=== PATIENT | female | born 2000 | race Two or more races ===

== ENCOUNTER 2025-03-14 05:15 | Emergency (ER) | payer MEDICAID, SELFPAY ==
[2025-03-14 05:17] VITALS: BMI 28.8
[2025-03-14 06:00] VITALS: BP 111/66; PULSE 81; RESP 16; TEMP 36.6; O2SAT 100
--- NOTE | 2025-03-14 06:18 | EKG_ITS ---
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
--- NOTE | 2025-03-14 06:18 | XR_ITS ---
Examination: PA lateral chest 2 views Technique: Upright PA lateral chest 2 views Date and time: March 14, 2025, 0617 hrs. Indications: Syncopal episode this morning. Findings: Normal heart size Lungs are clear. The osseous structures are intact Impression: Negative for aspiration pneumonia
--- NOTE | 2025-03-14 06:24 | PD.EDSYNC ---
ED Syncope RME/HPI General Chief Complaint: Syncope / Near Syncope Stated Complaint: PASSED OUT Time Seen by Provider: 03/14/25 06:18 Source: patient and family Arrival date/time: 03/14/25 05:15 24-year-old female with no known medical history presents to the emergency room with a chief complaint of a syncopal episode that occurred 30 minutes ago. Mode of arrival: ambulatory Limitations: no limitations Related Data Allergies Allergy/AdvReac Type Severity Reaction Status Date / Time No Known Allergies Allergy Verified 03/14/25 05:20 Review of Systems Review of Systems Systems Reviewed: All systems reviewed, normal except as documented Constitutional Constitutional: Reports system reviewed and no additional complaints, except as documented, Denies fatigue, Denies fever(s), Denies headache(s) and Denies weakness Eyes Eyes: Reports system reviewed and no additional complaints, except as documented, Denies blurry vision and Denies change in vision ENT Ears, Nose, Mouth, and Throat: Reports system reviewed and no additional complaints, except as documented, Denies otalgia, Denies headache(s), Denies nasal congestion, Denies throat swelling and Denies vertigo Cardiovascular Cardiovascular: Reports system reviewed and no additional complaints, except as documented, Denies chest pain, Denies chest pain at rest, Denies chest pain with activity, Denies dyspnea, Denies dyspnea on exertion, Denies irregular heart rhythm, Denies lightheadedness, Denies palpitations and Denies paroxysmal nocturnal dyspnea Respiratory Respiratory: Reports system reviewed and no additional complaints, except as documented, Denies chest congestion, Denies cough, Denies dyspnea, Denies dyspnea on exertion and Denies wheezing Gastrointestinal Gastrointestinal: Reports system reviewed and no additional complaints, except as documented, Denies abdominal pain, Denies cramping, Denies nausea and Denies vomiting Genitourinary Genitourinary: Reports system reviewed and no additional complaints, except as documented Musculoskeletal Musculoskeletal: Reports system reviewed and no additional complaints, except as documented and Denies back pain Integumentary/Breasts Skin/Breast: Reports system reviewed and no additional complaints, except as documented and Denies wounds Neurologic Neurologic: Reports system reviewed and no additional complaints, except as documented, Denies confusion, Denies headache(s), Denies lack of coordination, Denies vertigo and Denies weakness Psychiatric Psychiatric: Reports system reviewed and no additional complaints, except as documented, Denies anxiety, Denies confusion, Denies depression, Denies paranoia, Denies suicidal ideation and Denies tactile hallucinations Endocrine Endocrine: Reports system reviewed and no additional complaints, except as documented, Denies fatigue and Denies palpitations Hematologic/Lymphatic Hematologic/Lymphatic: Reports system reviewed and no additional complaints, except as documented and Denies lymphadenopathy Allergic/Immunologic Allergic/Immunologic: Reports system reviewed and no additional complaints, except as documented, Denies throat swelling, Denies urticaria and Denies wheezing ED Exam General Limitations: Present no limitations General appearance: Present alert and in no apparent distress Head Head exam: Present atraumatic Eye Eye exam: Present normal appearance, PERRL and EOMI ENT ENT exam: Present normal exam, normal oropharynx and mucous membranes moist Neck Neck exam: Present normal inspection, full ROM and trachea midline Chest Chest inspection: Present normal inspection and symmetric chest wall rise Respiratory Respiratory exam: Present normal lung sounds bilaterally; Absent respiratory distress, wheezes, stridor, accessory muscle use or prolonged expiratory phase Cardiovascular Cardiovascular exam: Present regular rate, normal rhythm, normal heart sounds, +S1 and +S2; Absent bradycardia, tachycardia, irregular rhythm, systolic murmur, diastolic murmur, rubs, gallop, clicks or JVD Abdominal Exam Abdominal exam: Present soft and normal bowel sounds; Absent tenderness Extremities Exam Extremities exam: Present normal inspection and full ROM Back Exam Back exam: Present normal inspection and full ROM Neurological Exam Neurological exam: Present alert, oriented X3 and CN II-XII intact Psychiatric Psychiatric exam: Present normal affect and normal mood Skin Skin exam: Present warm, dry, intact and normal color Course Quality Measures none Orders Category Date Time Status EKG (ED ONLY) *Do not use* NOW Care 03/14/25 06:[address] head/brain wo con Stat Exams 03/14/25 07:37 Completed EKG (ED Only) Stat Exams 03/14/25 06:18 Draft XR chest 2V Stat Exams 03/14/25 06:18 Completed B-Type Natriuretic Peptide Stat Lab 03/14/25 06:40 Completed CBC Stat Lab 03/14/25 06:40 Completed Comprehensive Metabolic Panel Stat Lab 03/14/25 06:40 Completed Drug Screen,Urine Stat Lab 03/14/25 06:38 Completed HCG,Qualitative Serum Stat Lab 03/14/25 06:40 Completed LDH (Lactate Dehydrogenase) Stat Lab 03/14/25 06:40 Completed Magnesium Stat Lab 03/14/25 06:40 Completed Partial Thromboplastin Time Stat Lab 03/14/25 06:40 Completed Prothrombin Time with INR Stat Lab 03/14/25 06:40 Completed Troponin I Stat Lab 03/14/25 06:40 Completed Urinalysis, C/S if Indicated Stat Lab 03/14/25 06:38 Completed Urine Culture Stat Lab 03/14/25 06:38 Received Vital Signs Vital signs: Vital Signs Temperature 97.8 F 03/14/25 06:00 Pulse Rate 81 03/14/25 06:00 Respiratory Rate 16 03/14/25 06:00 Blood Pressure 111/66 03/14/25 06:00 Pulse Oximetry (%) 100 03/14/25 06:00 Oxygen Delivery Method Room Air 03/14/25 06:00 PROCEDURES: EKG Interpretation #1: Date of EK03/14/25 Rate: 86 Interpretation: Reviewed by me EKG Impression: Normal sinus rhythm Syncope MDM Narrative MDM Narrative:: 24-year-old female with no known medical history presents to the emergency room with a chief complaint of a syncopal episode that occurred 30 minutes ago. Patient is hemodynamically stable and in no apparent distress Physical examination shows a normal neurological exam. Pupils are PERRLA EOMs are intact the patient has a normal steady gait. Patient denies any palpitations any chest pain any stomach pain or any headaches or dizziness. EKG shows normal sinus rhythm at [address] deviation. CBC CMP were negative for any acute findings. CT of the head and brain was negative for any acute findings. Patient was discharged and educated to follow-up with primary care provider in the next 24 to 48 hours and return to the emergency room for any evidence of worsening signs or symptoms Patient data External records reviewed:: [facility] previous records Clinical information provided by:: patient Social determinants that could affect healthcare access:: none Patient has the following chronic illnesses:: No chronic illness How is presenting disease/condition affected by chronic disease/condition?: no chronic disease Evaluation data The following diagnostics were reviewed and interpreted by me:: lab results and radiology exam(s) Lab and/or radiology exams considered but not ordered:: Labs radiology exams considered and ordered Interpretation Summary: Chest [id number]: Normal heart size Lungs are clear. The osseous structures are intact Impression: Negative for aspiration pneumonia CT head and brain-Findings: No significant ventricular enlargement. Intra-axial or extra-axial hemorrhage density is not seen. No mass effect or midline shift Basal cisterns are not remarkable. Fourth ventricle is midline. Cranial vault intact. Impression: Negative for acute hemorrhage, mass effect or midline shift Medications / Prescriptions Medications or Prescriptions considered but not ordered:: No medication given Medication administrations:: No medication given Consultations Consultation(s) initiated? (list below): No Diagnosis Syncope Differential Diagnosis: syncope due to orthostatic hypotension, vasovagal syncope and subarachnoid hemorrhage Most likely diagnosis given after review of the tests above:: Vasovagal syncope Admission Indicated Admission indicated?: not indicated Admission Request Was there a request for admission?: No Disposition Plan Disposition Plan: Discharge Discharge Attestation Discharge Attestation: The patient and all family members were given an opportunity to ask questions and understood the discharge instructions. Discharge instructions specifically effects, indications for sooner follow up or return to the emergency department, and the expected course of current diagnosis. Patient condition: Stable Discharge Plan Plan Patient Disposition: HOME (Self Care) Discharge Disposition comment: Stable Prescriptions/Referrals Referrals: No Primary/Family,Physician [Primary Care Provider] - In 1 week Problem List Clinical Impression: Vasovagal syncope Patient/Caregiver Discharge Instructions Education Materials: ED Fainting, Uncertain Cause, ED Dizziness or Syncope ... Additional Instructions: Please follow-up with your primary care provider in the next 24 to 48 hours Your cardiac examination today was within normal limits. Your CT of your head and brain was negative for any acute findings. For any evidence of worsening signs or symptoms return to the emergency room immediately Print Language: Romanian Stand Alone Forms: Jennie Award Info., Work/School Release, Patient Portal Info Letter KEN/MERLY Supervising Physician KEN/MERLY Supervising Physician: Dr. Chin
[2025-03-14 06:46] LABS: Basophils # (Auto) 0.1 Thou/mm3 (0.0-0.2); Basophils % (Auto) 1 % (0-2.5); Eosinophils # (Auto) 0.2 Thou/mm3 (0.0-0.5); Eosinophils % (Auto) 1 % (0-10); Hematocrit 43.6 % (36.0-46.0); Hemoglobin 14.1 g/dL (12.0-16.0); Immature Granulocytes Auto 0.05 Thou/mm3 (0.00-0.00); Lymphocytes # (Auto) 2.5 Thou/mm3 (1.0-4.8); Lymphocytes % (Auto) 22 % (10-50); Mean Corpuscular HGB Conc 32.3 g/dl (31.0-37.0); Mean Corpuscular Hemoglobin 29.4 pg (25.0-35.0); Mean Corpuscular Volume 91 fL (80-100); Monocytes # (Auto) 0.9 Thou/mm3 (0.0-0.8); Monocytes % (Auto) 8 % (0-12); Neutrophils # (Auto) 7.4 Thou/mm3 (1.8-7.7); Neutrophils % (Auto) 67 % (37-80); Nucleated Red Blood Cell # 0.00 Thou/mm3 (0.00-0.00); Nucleated Red Blood Cell % 0 /100 WBC (0); Platelet Count 188 Thou/mm3 (140-440); RDW Standard Deviation 43.4 fL (36.4-46.3); Red Blood Count 4.80 Miln/mm3 (4.00-5.20); White Blood Count 11.1 Thou/mm3 (3.6-11.0)
[2025-03-14 06:49] LABS: Collection Type, Urine Clean Catch
[2025-03-14 07:04] LABS: INR 1.0 (0.9-1.3); Partial Thromboplastin Time 24.7 Seconds (22.0-36.0); Prothrombin Time 11.1 Seconds (9.0-12.2)
[2025-03-14 07:06] LABS: B-Type Natriuretic Peptide < 20 pg/mL (0-100)
[2025-03-14 07:08] LABS: Alanine Aminotransferase 17 U/L (10-49); Albumin, Serum 4.6 gm/dL (3.5-5.0); Albumin/Globulin Ratio 2.4 (1.2-2.2); Alkaline Phosphatase 73 U/L (46-116); Anion Gap 8 (7-16); Aspartate Amino Transferase 20 U/L (0-34); BUN/Creatinine Ratio 10 Ratio (12-20); Bilirubin,Total 0.3 mg/dL (0.3-1.2); Blood Urea Nitrogen 7 mg/dL (9-23); Calcium 9.8 mg/dL (8.3-10.6); Calcium (Corrected) 9.8 mg/dL (8.5-10.1); Carbon Dioxide 26.6 mMol/L (20.0-31.0); Chloride 106 mMol/L (98-107); Creatinine (Component) 0.7 mg/dL (0.6-1.3); Estimated Creatinine Clearance 134.3 mL/min (>60); Globulin 1.9 gm/dL (2.3-3.5); Glucose 57 mg/dL (74-106); LDH (Lactate Dehydrogenase) 170 U/L (120-246); Magnesium 2.2 mg/dL (1.6-2.6); Osmolality,Calculated 277 (275-295); Potassium 3.5 mMol/L (3.4-5.1); Sodium 141 mMol/L (136-145); Total Protein 6.5 gm/dL (5.7-8.2); Troponin I < 0.002 ng/mL (0.0-0.045); eGFR > 60 See Note
[2025-03-14 07:09] LABS: Bilirubin,Urine Negative (Negative); Blood,Urine Negative (Negative); Clarity,Urine Turbid (Clear/Hazy); Color,Urine Lt-Yellow (Lt Yel-Yel); Glucose, Urine Negative (Negative); Ketones,Urine Negative (Negative); Leukocyte Esterase,Urine Positive (Negative); Nitrite,Urine Negative (Negative); PH,Urine 6.5 (5.0-7.0); Protein,Urine Negative (Neg - Trace); RBC,Urine 1 /hpf (0-3); Specific Gravity,Urine 1.015 (1.001-1.035); Squamous Epithelial Cell,Urine 6 /hpf (0-5); Urobilinogen,Urine Negative mg/dL (0.0-1.0); WBC,Urine 14 /hpf (0-5)
[2025-03-14 07:16] LABS: Culture Indicated,Urine Yes
[2025-03-14 07:21] LABS: Amphetamine/Methamp Scrn,U Negative (Negative); Barbiturate Screen,Urine Negative (Negative); Benzodiazepines Screen,Urine Negative (Negative); Benzoylecgonine Screen, Ur Negative (Negative); Fentanyl Screen,Urine Negative (Negative); Opiate Screen,Urine Negative (Negative); THC Screen,Urine Positive (Negative)
[2025-03-14 07:26] LABS: HCG,Qualitative Serum Negative
--- NOTE | 2025-03-14 07:37 | XR_ITS ---
Examination: CT brain head without contrast. 2-D sagittal coronal reconstructions Date and time of exam:March 14, 2025, 0801 hours INDICATIONS: Ground-level fall today with injury to the head, head pain CTDI: vol (mGy):47.7 DLP: (mGycm):900 Technique: Multiple CT axial sections of the brain have been obtained, 5 mm slice thickness. Contrast has not been administered. 2-D sagittal, coronal reconstructions have been obtained Low dose protocols were performed. One or more of the following dose reduction techniques were used; automated exposure control, adjustment of the mA and/or KV according to patient size, use of iterative reconstruction technique. Findings: No significant ventricular enlargement. Intra-axial or extra-axial hemorrhage density is not seen. No mass effect or midline shift Basal cisterns are not remarkable. Fourth ventricle is midline. Cranial vault intact. Impression: Negative for acute hemorrhage, mass effect or midline shift
== END 2025-03-14 09:27 | disposition home or self-care (01) ==
PROVIDERS: Emergency Provider Nurse Practitioner Family
DX: R55 Syncope and collapse (principal); I45.10 Unspecified right bundle-branch block; S09.90XA Unspecified injury of head, initial encounter; W18.30XA Fall on same level, unspecified, initial encounter
CPT/HCPCS: 36415; 70450; 71046; 80053; 80307; 81001; 83615; 83735; 83880; 84484; 84703; 85025; 85610; 85730; 87077; 87086; 87186; 93005; 99284